=== PATIENT | female | born 1995 | race African-American/Black ===

== ENCOUNTER 2020-05-25 18:13 | Emergency (ER) | payer OTHER ==
[~2020-05-25] VITALS: Ht 172.7 cm; Wt 49.8 kg
[2020-05-25] MEDS ORDERED: SODIUM CHLORIDE 0.9% 1,000 ML IV ONE (18:27)
[2020-05-25] MEDS ORDERED: ONDANSETRON HCL 4MG/2ML INJ IV STA (18:27)
[2020-05-25] MEDS ORDERED: SODIUM CHLORIDE 0.9% 1000ML BAG (SEPSIS BOLUS) IV ONE (18:30)
[2020-05-25 20:10] LABS: CHLORIDE 103 mEq/L (98-107)
[2020-05-25 20:11] LABS: CLARITY URINE CLOUDY (CLEAR); COLOR URINE YELLOW (YELLOW); KETONES URINE 1+ (NEGATIVE); LEUKOCYTE ESTERASE URINE 2+ (NEGATIVE); NITRITE URINE POSITIVE (NEGATIVE); OCCULT BLOOD URINE 3+ (NEGATIVE); PROTEIN URINE 2+ (NEGATIVE); SPECIFIC GRAVITY URINE 1.019 (1.005-1.030)
[2020-05-25 20:12] LABS: HEMOGLOBIN. 12.4 g/dL (12.0-16.0); MEAN CORPUSCULAR HEMOGLOBIN 31.4 pg (28.0-32.0); MEAN PLATELET VOLUME 8.2 fl (7.4-10.4); PLATELET 361 x1000/uL (130-400); RED BLOOD CELL COUNT 3.95 mill/uL (4.2-5.4); RED CELL DISTRIBUTION WIDTH 12.9 % (11.6-14.6)
[2020-05-25 20:13] LABS: HCG SCREEN NEGATIVE
[2020-05-25 20:14] LABS: INR 1.1
[2020-05-25 20:26] LABS: *BARBITURATES SCREEN URINE NEGATIVE (NEGATIVE); METHADONE URINE SCREEN NEGATIVE (NEGATIVE); OPIATES URINE SCREEN NEGATIVE (NEGATIVE); PHENCYCLIDINE URINE SCREEN NEGATIVE (NEGATIVE)
[2020-05-25 20:27] LABS: *AMPHETAMINES SCREEN URINE NEGATIVE (NEGATIVE); *BENZODIAZEPINES SCREEN URINE NEGATIVE (NEGATIVE)
[2020-05-25 20:30] LABS: *COCAINE SCREEN URINE PRESUMTIVE POSITIVE (NEGATIVE); CANNABINOID URINE SCREEN PRESUMTIVE POSITIVE (NEGATIVE)
[2020-05-25] MEDS ORDERED: CEFTRIAXONE 1 G PREMIX 50 ML IV ONE (20:45)
[2020-05-25] MEDS ORDERED: POTASSIUM CHLORIDE INJ 40 MEQ in DEXT 5% WATER 250 ML IV ONE (21:00)
[2020-05-25 21:10] LABS: PLATELET ESTIMATE NORMAL
[2020-05-26 02:10] VITALS: BP 120/58
[2020-05-26] MEDS ORDERED: ACETAMINOPHEN 325MG TABLET ONE (02:19)
== END 2020-05-26 02:16 | disposition short-term general hospital (02) ==
LOC: ER 18:13
DX: A41.9 Sepsis, unspecified organism (principal); N10 Acute pyelonephritis
CPT/HCPCS: 36415; 71045; 80053; 80305; 81003; 81025; 83605; 83735; 84145; 84484; 84703; 85025; 85610; 87040; 87077; 87086; 87186; 93005; 96361; 96365; 96367; 96375; 99285; J0696; J2405; J3480; J7030; J7060

== ENCOUNTER 2025-03-27 06:18 | Emergency (ER) | payer MEDICAID, OTHER ==
[~2025-03-27] VITALS: Ht 172.7 cm; Wt 58.2 kg
[2025-03-27 06:21] VITALS: O2SAT 97
[2025-03-27] MEDS: KETOROLAC 30MG/ML VIAL IV STA (07:03)
[2025-03-27] MEDS: METOCLOPRAMIDE HCL 10MG/2ML VIAL IV ONE (07:03)
[2025-03-27] MEDS: SODIUM CHLORIDE 0.9% 1,000 ML IV ONE (07:05)
[2025-03-27 07:23] LABS: BASOPHILS % 0.7 % (0.0-2.0); EOSINOPHILS % 1.6 % (0.0-5.0); HEMATOCRIT. 34.7 % (36.0-48.0); HEMOGLOBIN. 12.1 g/dL (12.0-16.0); LYMPHOCYTES % 18.8 % (20.0-50.0); MEAN CORPUSCULAR HEMOGLOBIN 31.4 pg (28.0-32.0); MEAN CORPUSCULAR HGB CONC 34.9 g/dL (31.0-37.0); MEAN CORPUSCULAR VOLUME 90.1 fL (81.0-99.0); MEAN PLATELET VOLUME 7.5 fl (7.4-10.4); MONOCYTES % 9.2 % (2.0-8.0); NEUTROPHILS % 69.7 % (40.0-76.0); PLATELET 397 x1000/uL (130-400); RED BLOOD CELL COUNT 3.85 mill/uL (4.2-5.4); RED CELL DISTRIBUTION WIDTH 12.5 % (11.6-14.6); WHITE BLOOD COUNT 11.7 x1000/uL (4.5-11.0)
[2025-03-27 07:29] LABS: CHLORIDE 107 mEq/L (98-107); POTASSIUM 3.2 mEq/L (3.5-5.1); SODIUM 141 mEq/L (136-145)
[2025-03-27 07:30] LABS: CARBON DIOXIDE 24 mEq/L (21-32)
[2025-03-27 07:31] LABS: CALCIUM 9.5 mg/dL (8.7-10.4)
[2025-03-27 07:35] LABS: CREATININE 0.6 mg/dL (0.6-1.0); GLUCOSE 100 mg/dL (70-105); UREA NITROGEN BLOOD 8 mg/dL (9-23)
[2025-03-27 08:30] LABS: CLARITY URINE CLEAR (CLEAR); COLOR URINE YELLOW (YELLOW); GLUCOSE URINE NEGATIVE (NEGATIVE); KETONES URINE NEGATIVE (NEGATIVE); LEUKOCYTE ESTERASE URINE 1+ (NEGATIVE); NITRITE URINE NEGATIVE (NEGATIVE); OCCULT BLOOD URINE 3+ (NEGATIVE); PH URINE 5.5 (4.5-8.0); PROTEIN URINE 2+ (NEGATIVE); SPECIFIC GRAVITY URINE 1.017 (1.005-1.030); UROBILINOGEN URINE 0.2 E.U./dL (0.2-1.0)
[2025-03-27] MEDS ORDERED: ONDA4TAB50 PO (08:40)
[2025-03-27] MEDS ORDERED: TOPUD PO (08:42)
[2025-03-27] MEDS ORDERED: NITR100C PO (08:43)
[2025-03-27 08:50] LABS: BACTERIA URINE TRACE; SQUAMOUS EPITHELIAL CELL URINE 1+ /lpf (RARE/1+); YEAST URINE NONE SEEN
[2025-03-27 08:51] LABS: COARSE GRANULAR CASTS URINE 0-5 /lpf; TRICHOMONAS URINE 1+
[2025-03-27] MEDS: POTASSIUM CHLORIDE 20MEQ/PACKET PO ONE (08:53)
[2025-03-27 08:59] VITALS: BP 110/48; PULSE 73; RESP 18; TEMP 36.8; O2SAT 100
[2025-03-27 09:08] LABS: HCG SCREEN NEGATIVE
== END 2025-03-27 09:37 | disposition home or self-care (01) ==
LOC: ER 06:18
DX: N39.0 Urinary tract infection, site not specified (principal); R11.2 Nausea with vomiting, unspecified; E87.6 Hypokalemia; F10.90 Alcohol use, unspecified, uncomplicated; Y90.9 Presence of alcohol in blood, level not specified
CPT/HCPCS: 80048; 81003; 84703; 85025; 87086; 36415; 96361; 96374; 96375; 99284; J1885; J2765; J7030; Z7610